=== PATIENT | male | born 1960 | race Caucasian/White ===

== ENCOUNTER 2017-04-02 10:48 | Emergency (ER) | payer SELFPAY ==
[~2017-04-02] VITALS: Ht 182.9 cm; Wt 85.0 kg
[~2017-04-02 10:48] MED LIST: CHLO.12%30 SSP; HYDR-3533 PO; PENI250T59 PO
[2017-04-02 10:50] VITALS: BP 157/92; PULSE 77; RESP 16; TEMP 97.9; O2SAT 96
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
[2017-04-02] MEDS ORDERED: IBUPROFEN 800 MG TAB PO ONE (11:15)
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
[2017-04-02] MEDS ORDERED: IBUP1TAB7 PO (12:04)
== END 2017-04-02 12:34 | disposition home or self-care (01) ==
LOC: NEPK 10:48
DX: S89.91XA Unspecified injury of right lower leg, initial encounter (principal); S79.912A Unspecified injury of left hip, initial encounter; V18.4XXA Pedal cycle driver injured in noncollision transport accident in traffic accident, initial encounter; Y92.410 Unspecified street and highway as the place of occurrence of the external cause
CPT/HCPCS: 73502; 73564; 99284; E0113